=== PATIENT | male | born 1975 | race Caucasian/White ===

== ENCOUNTER 2017-07-27 17:17 | Emergency (ER) | payer OTHER ==
[~2017-07-27] VITALS: Ht 167.6 cm; Wt 74.8 kg
[2017-07-27] MEDS ORDERED: PREDNISONE 10 M10 MG PO (18:15)
[2017-07-27 18:23] VITALS: BP 137/101
== END 2017-07-27 18:23 | disposition home or self-care (01) ==
LOC: M.ERS 17:17 → EDSEX 17:17 → M.ERS 18:23
DX: M25.561 Pain in right knee (principal); Z88.0 Allergy status to penicillin